=== PATIENT | male | born 1970 | race Caucasian/White ===

== ENCOUNTER → 2020-09-08 08:07 | Outpatient (BNVA) | payer MEDICARE, SELFPAY | PROVIDERS: Family Provider Internal Medicine; PCP Internal Medicine; Visit Provider Surgery | DX: Z20.822 Contact with and (suspected) exposure to COVID-19 (principal); R19.4 Change in bowel habit | CPT/HCPCS: 87635 ==

== ENCOUNTER 2020-09-12 08:21 | Day surgery (SDC) | payer MEDICARE, SELFPAY ==
[2020-09-08 14:50] VITALS: BMI 43.7
[2020-09-12 09:12] VITALS: BP 174/92; PULSE 103; RESP 18; TEMP 36.1; O2SAT 96
[2020-09-12 09:12] LABS: Glucose Point of Care 276 mg/dL (70-110)
[2020-09-12] MEDS: sodium chloride 0.9% 1,000 ML 30 ML IV (09:16)
--- NOTE | 2020-09-12 09:31 | ANES.PREANE2 ---
Pre-Anesthetic Assessment Pre-Anesthetic Assessment: Height/Weight: Height 1.91 m Weight 158.757 kg Temp Pulse Resp BP Pulse Ox 97.0 F L 103 H 18 174/92 96 09/12/20 09:12 09/12/20 09:12 09/12/20 09:12 09/12/20 09:12 09/12/20 09:12 Preop Diagnosis: diagnostic Proposed Procedure: Operation Date: 09/12/20 09:30 Proposed Procedures p Colonoscopy 56381 r19.4(Not Applicable) - Rambo Villalta MD Was Beta Devante taken within 24 hours: N/A Last intake: Intake Last Liquid Date 09/11/20 Last Liquid Time 07:45 Last Solid Date 09/10/20 Last Solid Time 20:30 Social: Social History: No alcohol and No tobacco Exam: Pre-Anes Outpt Exam: alert, oriented x 3, clear to auscultation bilaterally and regular rate & rhythm Airway: Submandibular: WNL Cervical ROM: WNL MP: 2 Dentition: Full CV/HEM: CV/HEM: HTN Metabolic: Metabolic: DM (poorly controlled) and Morbid obesity Anesthetic Plan: ASA status: 3 Anesthesia: MAC Risk of > 500 ml blood loss (7ml/kg in children): No Meds/Allergies Current Medications: Current Medications Generic Name Dose Route Start Last Admin Trade Name Freq PRN Reason Stop Dose Admin Sodium Chloride 1,000 mls @ 30 ml s/hr 09/12/20 08:45 09/12/20 09:16 Sodium Chloride 0.9% IV 09/13/20 08:44 30 mls/hr .Q24H SALENA Administration PFSH Anesthesia PFSH: Medical History (Updated 08/30/20 @ 13:55 by Rambo Villalta MD) Diabetes History of colon polyps Hyperlipidemia Hypertension Surgical History (Updated 08/29/20 @ 15:34 by Rambo Villalta MD) H/O esophagogastroduodenoscopy Status post colonoscopy Family History (Updated 08/29/20 @ 14:53 by Nissa Vickers, RN) Denies family history of Anesthesia complication Bleeding disorder Social History (Updated 08/29/20 @ 15:09 by Nissa Vickers RN) Smoking and tobacco status: never smoked Data Anesthesia Other Labs: Laboratory Results - last 48 hr 09/12/20 09:08 POC Glucose 276 H Cardiac Studies: No Data to Display
--- NOTE | 2020-09-12 10:27 | W.PM.OPSUD ---
Surgery/Procedure H&P Update DATE OF PROCEDURE: September 12, 2020 DATE H&P PERFORMED: 08/29/20 H&P UPDATE INFORMATION: I have reviewed H&P completed within last 30 days, I have examined patient prior to procedure and No changes to prior documentation PREOP DIAGNOSIS: diagnostic PLANNED PROCEDURE: Operation Date: 09/12/20 09:30 Proposed Procedures p Colonoscopy 98967 r19.4(Not Applicable) - Rambo Villalta MD
[2020-09-12 11:07] VITALS: BP 106/68; PULSE 87; RESP 18; TEMP 36.4; O2SAT 93
[2020-09-12 11:23] VITALS: BP 148/71; PULSE 82; RESP 18; O2SAT 95
--- NOTE | 2020-09-12 16:13 | ANE.PACU2 ---
Inpatient post-anesthesia follow up: Airway intact: Yes Vital signs: Temperature 97.5 F Pulse Rate 82 Respiratory Rate 18 Blood Pressure 148/71 Pulse Oximetry 95 Oxygen Delivery Me thod Room Air Oxygen Flow Rate Fraction of Inspir ed Oxygen Hydration adequate: Yes Nausea and vomiting: No Pain level: 1 Mental status: Baseline
== END 2020-09-12 11:35 | disposition home or self-care (01) ==
PROVIDERS: PCP Internal Medicine; Visit Provider Surgery
PROC: 0DJD8ZZ Inspection of Lower Intestinal Tract, Via Natural or Artificial Opening Endoscopic (ICD-10-PCS; CPT 45378; principal; 2020-09-12 09:30)
DX: K57.30 Diverticulosis of large intestine without perforation or abscess without bleeding (principal); D12.8 Benign neoplasm of rectum; D12.5 Benign neoplasm of sigmoid colon; Z86.010 Personal history of colon polyps; Z79.82 Long term (current) use of aspirin; E11.9 Type 2 diabetes mellitus without complications; Z79.4 Long term (current) use of insulin; E78.5 Hyperlipidemia, unspecified; I10 Essential (primary) hypertension
CPT/HCPCS: 12345; 36416; 45380; 82962; 88305; J2704; J7030

== ENCOUNTER → 2020-09-28 08:16 | Outpatient (BNVA) | payer MEDICARE, SELFPAY | PROVIDERS: PCP Internal Medicine; Visit Provider Surgery | DX: K62.89 Other specified diseases of anus and rectum (principal) | CPT/HCPCS: 87635 ==

== ENCOUNTER 2020-10-02 05:45 | Day surgery (SDC) | payer MEDICARE, SELFPAY ==
[2020-09-29 08:52] VITALS: BMI 43.7
[2020-10-02] VITALS (11 sets, daily range): BP systolic 66–162; BP diastolic 42–124; PULSE 85–105; RESP 12–19; TEMP 36.2–37.1; O2SAT 90–96
[2020-10-02] MEDS: sodium chloride 0.9% 1,000 ML 30 ML IV (06:22)
[2020-10-02 06:26] LABS: Glucose Point of Care 367 mg/dL (70-110)
--- NOTE | 2020-10-02 06:28 | ANES.PREANE2 ---
Pre-Anesthetic Assessment Pre-Anesthetic Assessment: Height/Weight: Height 1.91 m Weight 158.757 kg Temp Pulse Resp BP Pulse Ox 98.7 F 105 H 18 162/124 96 10/02/20 06:07 10/02/20 06:07 10/02/20 06:07 10/02/20 06:07 10/02/20 06:07 Preop Diagnosis: perianal cyst Proposed Procedure: Operation Date: 10/02/20 07:30 Proposed Procedures p Excision of perianal cyst 11209 [id number] K62.89(Not Applicable) - Rambo Villalta MD s poss Fistulotomy Anal(Not Applicable) - Rambo Villalta MD Familial anesthetic complications: None Was Beta Devante taken within 24 hours: N/A Last intake: Intake Last Liquid Date 10/01/20 Last Liquid Time 21:00 Last Solid Date 10/01/20 Last Solid Time 21:00 Social: Social History: No alcohol and No tobacco Exam: Pre-Anes Outpt Exam: alert, oriented x 3, clear to auscultation bilaterally and regular rate & rhythm Airway: Cervical ROM: WNL MP: 3 Dentition: False CV/HEM: CV/HEM: HTN Comments: ? TX seen on EKG - underwent evaluation in [place] in 2001, negative work up GI: GI: GERD Metabolic: Metabolic: DM and Morbid obesity Musc/skel: Comments: Mysofascial pain syndrom Neuropsych: Neuropsych: Neuropathy (Patient's L arm and L ulnar distribution will go numb, sometimes for days, normal for him, worked up at [facility] already) Anesthetic Plan: ASA status: 3 Anesthesia: General Risk of > 500 ml blood loss (7ml/kg in children): No Meds/Allergies Current Medications: Current Medications Generic Name Dose Route Start Last Admin Trade Name Freq PRN Reason Stop Dose Admin Sodium Chloride 1,000 mls @ 30 ml s/hr 10/02/20 06:00 10/02/20 06:22 Sodium Chloride 0.9% IV 10/03/20 05:59 30 mls/hr .Q24H SALENA Administration PFSH Anesthesia PFSH: Medical History (Updated 08/30/20 @ 13:55 by Rambo Villalta MD) Diabetes History of colon polyps Hyperlipidemia Hypertension Surgical History (Updated 09/12/20 @ 11:03 by Rambo Villalta MD) H/O esophagogastroduodenoscopy Status post colonoscopy (09/12/20) Family History (Updated 08/29/20 @ 14:53 by Nissa Vickers RN) Denies family history of Anesthesia complication Bleeding disorder Social History (Updated 08/29/20 @ 15:09 by Nissa Vickers RN) Smoking and tobacco status: never smoked Data Anesthesia Other Labs: Laboratory Results - last 48 hr 10/02/20 06:23 POC Glucose 367 H Cardiac Studies: No Data to Display
[2020-10-02] MEDS: insulin regular-human 100 units/1 mL 10 UNIT IVP (06:38)
[2020-10-02] MEDS: midazolam 1 mg/mL INJ 2 mL 2 MG IVP (06:39)
--- NOTE | 2020-10-02 07:01 | W.PM.OPSUD ---
Surgery/Procedure H&P Update DATE OF PROCEDURE: October 02, 2020 DATE H&P PERFORMED: 09/25/20 H&P UPDATE INFORMATION: I have reviewed H&P completed within last 30 days, I have examined patient prior to procedure and No changes to prior documentation PREOP DIAGNOSIS: perianal cyst PLANNED PROCEDURE: Operation Date: 10/02/20 07:30 Proposed Procedures p Excision of perianal cyst 36630 60024 K62.89(Not Applicable) - Rambo Villalta MD s poss Fistulotomy Anal(Not Applicable) - Rambo Villalta MD
[2020-10-02] MEDS: levofloxacin-dextrose 5 % 750 MG/150 ML PREMIX 100 MG IV (08:04)
--- NOTE | 2020-10-02 09:00 | PM.OP ---
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 Preop antibiotics administered was administered and the perianal area was prepped and draped in a sterile manner. Rectal exam under anesthesia revealed opening inferior to the dentate line. There was a palpable cyst noted about 3 cm from this opening on the posterior aspect. Lacrimal probe introduced through the cyst extended up to the fistulous opening just inferior to the dentate line. The fistula was noted to be superficial to the anal sphincter. Using electrocautery a fistulotomy was performed and the wall of the fistula was sutured to the skin edge using running 3-0 chromic suture. 10 cc of saline mixed with 10 cc of Exparel mixed with 0.5% Marcaine was infiltrated for a perianal block. Quarter inch ribbon gauze was placed and the patient was extubated and transferred to recovery room in stable condition.
[2020-10-02 09:44] LABS: Glucose Point of Care 233 mg/dL (70-110)
--- NOTE | 2020-10-02 09:45 | SUR.PHASEII ---
0940 Pt c/o feeling solar installer pv his head and neck. BP stable at 136/74. Blood sugar taken and noted at 233. Pt c/o pain at 7 to surgical area. Pt assisted to sitting position and ice applied to neck. Pt states he is beginning to feel better.
[2020-10-02] MEDS: HYDROcodone-acetaminophen 5-325 mg Tablet 1 TAB PO (09:50)
--- NOTE | 2020-10-02 10:13 | SUR.PHASEII ---
1005 Discharge teaching performed. Pt instructed on how to use sitz bath 3x daily and apply dressing to anus. No questions voiced.
--- NOTE | 2020-10-02 18:03 | ANE.PACU2 ---
Inpatient post-anesthesia follow up: Airway intact: Yes Vital signs: Temperature 97.8 F Pulse Rate 89 Respiratory Rate 16 Blood Pressure 136/74 Pulse Oximetry 94 Oxygen Delivery Me thod Room Air Oxygen Flow Rate 8 Fraction of Inspir ed Oxygen Hydration adequate: Yes Nausea and vomiting: No Pain level: 2 Mental status: Baseline
== END 2020-10-02 10:15 | disposition home or self-care (01) ==
PROVIDERS: PCP Internal Medicine; Visit Provider Surgery
PROC: (CPT 46270; principal; 2020-10-02 07:30)
DX: K62.89 Other specified diseases of anus and rectum (principal); I10 Essential (primary) hypertension; I25.2 Old myocardial infarction; K21.9 Gastro-esophageal reflux disease without esophagitis; E66.01 Morbid (severe) obesity due to excess calories; Z68.41 Body mass index [BMI] 40.0-44.9, adult; E11.40 Type 2 diabetes mellitus with diabetic neuropathy, unspecified; Z86.010 Personal history of colon polyps; E78.5 Hyperlipidemia, unspecified; Z79.82 Long term (current) use of aspirin; Z79.4 Long term (current) use of insulin
CPT/HCPCS: 46270; 36416; 82962; 96374; 96375; C9290; J0131; J0330; J1100; J1815; J1956; J2250; J2370; J2405; J2704; J3010; J3490; J7030

== ENCOUNTER → 2020-11-24 10:42 | Outpatient (BNVA) | payer MEDICARE, SELFPAY | PROVIDERS: PCP Internal Medicine; Visit Provider Anesthesiology | DX: G89.29 Other chronic pain (principal); M54.9 Dorsalgia, unspecified; M25.552 Pain in left hip; M25.572 Pain in left ankle and joints of left foot; M54.2 Cervicalgia; M25.511 Pain in right shoulder; Z79.891 Long term (current) use of opiate analgesic | CPT/HCPCS: 99213 ==

== ENCOUNTER 2021-03-25 07:30 | Emergency (ER) | payer MEDICARE, SELFPAY ==
[2021-03-25] VITALS (8 sets, daily range): BP systolic 134–213; BP diastolic 69–101; PULSE 75–99; RESP 16–18; TEMP 36.4; O2SAT 90–97; BMI 45.0
--- NOTE | 2021-03-25 07:47 | W.ED.HA ---
HPI - Headache General: Chief Complaint: Headache Stated Complaint: NICOLE Time Seen by Provider: 03/25/21 07:43 History of Present Illness: HPI Narrative: Mr. Goncalves is a 50-year-old gentleman with history of diabetes, hypertension, hyperlipidemia who presents emergency department due to headache. Reports onset of headache was acute at approximately midnight. He describes initially feeling right face pain as if he was going to develop a sinus headache. He attempted home medications without significant relief. His headache has subsequently worsened. He endorses associated photophobia. He has not had vision changes. No change from his baseline chronic neck pain. No other infectious symptoms. Overall the course of symptoms has persisted. The intensity is moderate to severe. He denies similar episodes in the past. No other specific exacerbating relieving factors. Review of Systems General: Reports: 10 or more systems reviewed and unremarkable except in HPI and below Narrative: CONSTITUTIONAL: denies fever, fatigue, weakness EYES - patient endorses photophobia, denies loss of vision EARS - denies ear issues. NOSE - denies congestion or rhinorrhea. THROAT - denies sore throat or difficulty swallowing. CARDIOVASCULAR - denies chest pain and palpitations RESPIRATORY - denies shortness of breath and cough GASTROINTESTINAL - denies abdominal pain, no nausea vomiting, no changes in bowel habits GENITOURINARY - denies dysuria or urinary frequency MUSCULOSKELETAL- denies deformity or pain SKIN - denies rashes or new changed skin lesions NEUROLOGIC - denies focal weakness or sensory changes. Headache is noted in HPI HEMATOLOGIC/LYMPHATIC - denies easy bruising or lymphadenopathy. [facility] ED PFSH: Medical History Chronic low back pain Diabetes History of colon polyps Hyperlipidemia Hypertension Narcotic dependency, continuous Opioid contract exists Surgical History H/O esophagogastroduodenoscopy Status post colonoscopy (09/12/20) Status post surgery (10/02/20) Perianal fistulotomy Family History Denies family history of Anesthesia complication Bleeding disorder Social History Smoking and tobacco status: never smoked Physical Exam Narrative: EXAM NARRATIVE: GENERAL/CONSTITUTIONAL - well-appearing. Discomfort due to headache, patient has a towel over his face to prevent light Eyes - PERRL, initially limited exam due to severe photophobia. ENMT - Atraumatic external nose and ears. Moist mucous membranes. No vesicular lesions or other rash noted on face or auditory canal. No tenderness palpation of the temporal artery. No tenderness with percussion of facial nerve. NECK - supple. trachea midline CARDIOVASCULAR - regular rate and rhythm. Peripheral pulses 2+ and equal RESPIRATORY -clear to auscultation bilaterally. No retractions or accessory muscle use. ABDOMEN/GI - Nontender/Nondistended. No tenderness to percussion or evidence of peritonitis MSK - Extremities without obvious deformity or tenderness to palpation SKIN - Warm, Dry NEURO - alert and appropriately oriented. strength and sensation intact. Moves all extremities equally. PSYCH - Appropriate mood and affect Course ED course: - Patient was seen and evaluated by me at bedside - Patient placed on cardiac monitors, IV access obtained - Initial evaluation notable for uncomfortable appearance due to photophobia and headache -Headache cocktail and IV fluids given. - Labs notable for no significant abnormalities to likely explain patient's symptoms. Patient has a known history of hyperglycemia and reports following up with his primary care regarding this. - Imaging notable for no acute intracranial hemorrhage or mass to explain the patient's headache. - Upon serial reexamination after treatment the patient was improved with near complete resolution of headache. -Eye exam did reveal mild right eye scleral injection and overlying abrasion on fluorescein exam. Intraocular pressures measured 10 on the right and 9 on the left. No evidence of entrapment or abnormal extra ocular movements. - Based on patient history, evaluation, labs, and imaging as interpreted the most likely cause of the patient's condition is headache and corneal abrasion - The results of ED evaluation were discussed with the patient including prescriptions and/or symptomatic cares including appropriate and responsible use, followup plan, and return precautions. The patient verbalized understanding and felt safe for discharge. - Patient discharged in satisfactory condition. Vital Signs: Vital signs: Vital Signs Temperature 97.5 F L 03/25/21 07:46 Pulse Rate 93 03/25/21 10:47 Respiratory Rate 16 03/25/21 10:47 Blood Pressure 162/76 03/25/21 10:47 Pulse Oximetry 95 03/25/21 10:47 MDM - Headache Medical Records: Attestation: I reviewed the patient's medical records. Lab Data: Attestation: I reviewed the patient's lab results. Labs: Lab Results 03/25/21 03/25/21 Range/Units 08:16 08:16 WBC 6.5 (4.0-10.0) 10^3/ uL RBC 5.75 H (4.1-5.3) 10^6/u L Hgb 15.5 (11.7-16.6) g/dL Hct 45.7 (42.0-52.0) % MCV 79.5 L (80-94) fl MCH 27.0 L (28.0-34.0) pg MCHC 33.9 (30.0-36.0) g/dL RDW 12.3 (12.1-15.1) % Plt Count 191 (130-400) 10^3/c mm MPV 10.4 (7.4-10.4) fL Neut % (Auto) 59.1 % Lymph % (Auto) 27.4 % [place] % (Auto) 7.9 % Eos % (Auto) 2.8 % Baso % (Auto) 1.9 % Neut # (Auto) 3.81 (1.8-7.7) 10^3/u L Lymph # (Auto) 1.8 (0.8-4.8) 10^3/u L [place] # (Auto) 0.5 (0.2-0.9) 10^3/u L Eos # (Auto) 0.2 (0.0-0.8) 10^3/u L Baso # (Auto) 0.1 (0.0-0.1) 10^3/u L Nucleated RBC % (a uto) 0 % Nucleated RBCs # 0.0 /100WBC Sodium 130 L (136-145) mmol/L Potassium 4.5 (3.5-5.1) mmol/L Chloride 92 L (98-107) mmol/L Carbon Dioxide 22 (22-29) mmol/L Anion Gap 20.5 H (5-19) BUN 13 (6-20) mg/dL Creatinine 0.7 (0.7-1.2) mg/dL GFR Calculation 120.4 (90-130) mL/min Glucose 356 H (65-115) mg/dL Calculated Osmolal ity 284 L (285-295) mOsm/k g Calcium 9.1 (8.5-10.5) mg/dL Total Bilirubin 0.4 (0.15-1.2) mg/dL AST 15 (0-40) U/L ALT 28 (0-41) U/L Alkaline Phosphata se 113 (40-130) IU/L NT-Pro-B Natriuret Pep 30 (0-125) pg/mL Total Protein 7.6 (6.6-8.7) g/dL Albumin 4.0 (3.5-5.2) g/dL Globulin 3.6 (1.3-4.6) g/dL Discharge Plan Discharge Patient Disposition: Home Clinical Impression: Headache, Abrasion, corneal Condition: Stable Prescriptions: New erythromycin 5 mg/gram (0.5 %) ointment 1 applic ophthalmic (eye) TID 5 Days Qty: 3.5 RF: 0 Compazine 10 mg tablet 10 mg PO Q8H PRN (Reason: migraine headache) Qty: 7 RF: 0 No Action aspirin 81 mg tablet,delayed release (DR/EC) 81 mg PO DAILY RF: 0 insulin lispro [Humalog KwikPen Insulin] 100 unit/mL insulin pen 80 unit SUBCUT TID RF: 0 Trulicity 1.5 mg/0.5 mL pen injector 1.5 mg SUBCUT .weekly RF: 0 Tresiba FlexTouch U-200 200 unit/mL (3 mL) insulin pen 80 unit SUBCUT DAILY RF: 0 lisinopril 40 mg tablet 40 mg PO DAILY RF: 0 hydrochlorothiazide 25 mg tablet 25 mg PO DAILY RF: 0 simvastatin 10 mg tablet 10 mg PO DAILY RF: 0 cyclobenzaprine 10 mg tablet 10 mg PO TID RF: 0 tizanidine 4 mg tablet 4 mg PO TID PRN (Reason: muscle spasticity) 30 Days Qty: 90 RF: 0 oxycodone 10 mg tablet 10 mg PO TID PRN (Reason: pain) 30 Days Qty: 90 RF: 0 esomeprazole magnesium [Nexium] 20 mg Capsule,Delayed Release(Dr/Ec) 20 mg PO DAILY RF: 0 Discharge Orders: Discharge ED (Routine); Ordered 03/25/21 Ordered By: Ty Hutson Referrals: Donna Venegas MD [Primary Care Provider] - Discharge Diet: Usual diet Discharge Activity: Resume usual activity Patient Instructions: Hyperglycemia, Corneal Abrasion (ED), Acute Headache (ED), Opioid Safety Activity Restrictions/Additional Instructions: Thank you for visiting the emergency department. You were seen and evaluated for headache. The exact cause of headaches is somewhat unclear though we did not find any significant abnormality to explain your symptoms. We are pleased that this improved with treatment. You were noted to have an abrasion on your eye which will be treated with eyedrops. Additionally you will be given a prescription for medication that you can use with Benadryl and Tylenol to help with further headaches. This medication can cause sedation, do not combine it with other sedating medications. Please return to the emergency department for any reason that you are concerned about and feel needs emergency department evaluation. Coding Level of Care Code ED Retanned Leather Roller for Jojo Hernandez
--- NOTE | 2021-03-25 07:55 | CTR_ITS ---
PROCEDURE INFORMATION: Exam: CT Head Without Contrast Exam date and time: 03/25/2021 7:55 AM Age: 50 years old Clinical indication: Pain; Headache; Migraine; Aura effect not specified; Additional info: Severe headache, photophobia, no history of migraines TECHNIQUE: Imaging protocol: Computed tomography of the head without contrast. Radiation optimization: All CT scans at this facility use at least one of these dose optimization techniques: automated exposure control; mA and/or kV adjustment per patient size (includes targeted exams where dose is matched to clinical indication); or iterative reconstruction. COMPARISON: No relevant prior studies available. RADIATION DOSE METRICS: Total DLP (mGy-cm): 935.39 FINDINGS: Brain: Normal. No hemorrhage. Unremarkable white matter. No mass effect. Ventricles: No hydrocephalus or evidence of increased intracranial pressure. Paranasal sinuses: Visualized sinuses are unremarkable. No fluid levels. Mastoid air cells: Visualized mastoid air cells are well aerated. Vasculature: Atherosclerotic calcifications are present involving the carotid artery siphons bilaterally and the left vertebral artery. Bones/joints: No acute abnormality. No acute fracture. Soft tissues: Unremarkable. CT/CT head wo con* [id number] IMPRESSION: No acute intracranial abnormality. Radiation Dose CTDIVOL = (mGy): DLP = 935.39 (mGy-cm)
[2021-03-25] MEDS: ketorolac 30 mg/mL INJ 15 MG IVP (08:23)
[2021-03-25] MEDS: lactated ringers 1,000 ML 999 ML IV (08:23)
[2021-03-25 08:24] LABS: Basophils # 0.1 10^3/uL (0.0-0.1); Basophils % 1.9 %; Eosinophils # 0.2 10^3/uL (0.0-0.8); Eosinophils % 2.8 %; Hematocrit 45.7 % (42.0-52.0); Hemoglobin 15.5 g/dL (11.7-16.6); Lymphocytes # 1.8 10^3/uL (0.8-4.8); Lymphocytes % 27.4 %; Mean Corpuscular HGB Conc 33.9 g/dL (30.0-36.0); Mean Corpuscular Volume 79.5 fl (80-94); Mean Platelet Volume 10.4 fL (7.4-10.4); Monocytes # 0.5 10^3/uL (0.2-0.9); Monocytes % 7.9 %; Neutrophils # 3.81 10^3/uL (1.8-7.7); Neutrophils % 59.1 %; Nucleated Red Blood Cells % 0 %; Platelet Count 191 10^3/cmm (130-400); Red Blood Count 5.75 10^6/uL (4.1-5.3); Red Cell Distribution Width 12.3 % (12.1-15.1); White Blood Count 6.5 10^3/uL (4.0-10.0)
[2021-03-25] MEDS: diphenhydrAMINE 50 mg/mL SDV 1mL 25 MG IVP (08:24)
[2021-03-25] MEDS: metoclopramide 5 mg/mL SDV 2 mL 10 MG IVP (08:24)
[2021-03-25 09:00] LABS: Alanine Aminotransferase 28 U/L (0-41); Alkaline Phosphatase 113 IU/L (40-130); Aspartate Amino Transferase 15 U/L (0-40); Blood Urea Nitrogen 13 mg/dL (6-20); Calcium 9.1 mg/dL (8.5-10.5); Carbon Dioxide 22 mmol/L (22-29); Chloride 92 mmol/L (98-107); Globulin 3.6 g/dL (1.3-4.6); Glomerular Filtration Rate 120.4 mL/min (90-130); Glucose 356 mg/dL (65-115); NT Pro B Type Natriuretic Pept 30 pg/mL (0-125); Osmolality Calculated 284 mOsm/kg (285-295); Sodium 130 mmol/L (136-145); Total Bilirubin 0.4 mg/dL (0.15-1.2); Total Protein 7.6 g/dL (6.6-8.7)
[2021-03-25 09:09] LABS: Anion Gap 20.5 (5-19); Potassium 4.5 mmol/L (3.5-5.1)
== END 2021-03-25 10:47 | disposition home or self-care (01) ==
PROVIDERS: Emergency Provider Emergency Medicine; PCP Internal Medicine
DX: S05.01XA Injury of conjunctiva and corneal abrasion without foreign body, right eye, initial encounter (principal); R51.9 Headache, unspecified; E11.9 Type 2 diabetes mellitus without complications; I10 Essential (primary) hypertension; E78.5 Hyperlipidemia, unspecified; Z79.4 Long term (current) use of insulin; Z79.899 Other long term (current) drug therapy; X58.XXXA Exposure to other specified factors, initial encounter
CPT/HCPCS: 70450; 80053; 83880; 85025; 96361; 96374; 96375; 99284; J1200; J1885; J2765

== ENCOUNTER → 2021-08-13 11:52 | Outpatient (BNVA) | payer MEDICARE, SELFPAY | PROVIDERS: PCP Internal Medicine; Visit Provider Nurse Practitioner Family | DX: Z20.822 Contact with and (suspected) exposure to COVID-19 (principal) | CPT/HCPCS: 87635 ==

== ENCOUNTER 2021-08-16 14:12 | Outpatient (CLI) | payer MEDICARE, SELFPAY ==
[2021-08-16 14:40] VITALS: BP 136/93; PULSE 110; RESP 20; TEMP 36.6; O2SAT 96; BMI 43.7
[2021-08-16 15:26] VITALS: BP 119/76; PULSE 97; RESP 18; TEMP 36.6; O2SAT 95
[2021-08-16 16:14] VITALS: BP 122/77; PULSE 98; RESP 16; TEMP 36.2; O2SAT 96
== END 2021-08-16 14:13 | disposition home or self-care (01) ==
PROVIDERS: PCP Internal Medicine; Visit Provider Internal Medicine
DX: U07.1 COVID-19 (principal)
CPT/HCPCS: 96365

== ENCOUNTER 2022-04-03 11:53 | Outpatient (CLI) | payer MEDICARE, SELFPAY ==
--- NOTE | 2022-04-03 12:08 | XR_ITS ---
WS: [id number] Exam: XR shoulder LT min 2V* [id number] Date/Time of Exam: 04/03/2022 12:08 PM Reason For Exam: fall Comparison 06/29/2011. No fracture or dislocation. Deformity of the glenoid which may be secondary to previous trauma or leonel rubin. Soft tissue calcification along the humeral head that might indicate calcific bursitis or tendi nitis. XR/XR shoulder LT min 2V* [id number] IMPRESSION: 1. No fracture or dislocation. 2. Deformity of the glenoid etiology uncertain. Appearance unchanged. 3. Possible calcific tendinitis and/or bursitis.
--- NOTE | 2022-04-03 12:08 | XR_ITS ---
WS: [id number] Exam: XR chest 2V* [id number] Date/Time of Exam: 04/03/2022 12:08 PM Reason For Exam: fall Comparison 12/26/2016. The lungs are clear and fully expanded. Normal cardiomediastinal silhouette. Bony structures are inta ct. Scattered calcified granulomas. Postoperative changes in the lower cervical spine. XR/XR chest 2V* [id number] IMPRESSION: 1. No acute cardiopulmonary finding. No change.
== END 2022-04-03 11:54 | disposition home or self-care (01) ==
LOC: RAD 11:56
PROVIDERS: PCP Internal Medicine; Visit Provider Registered Nurse Neonatal Intensive Care
DX: M25.512 Pain in left shoulder (principal); W19.XXXA Unspecified fall, initial encounter
CPT/HCPCS: 71046; 73030

== ENCOUNTER 2022-04-19 19:59 | Emergency (ER) | payer MEDICARE, SELFPAY ==
[2022-04-19 20:00] VITALS: BP 197/97; PULSE 92; RESP 18; TEMP 36.2; O2SAT 96
--- NOTE | 2022-04-19 22:36 | ED_ITS ---
HPI - Extremity Problem General: Chief complaint: Extremity Injury, Upper Stated complaint: left shoulder pain and numbness Time Seen by Provider: 04/19/22 22:30 History of Present Illness: 51-year-old male patient comes in today with complaints of left shoulder pain and discomfort with numbness numbness going down the left arm. Patient has a history of surgeries to his neck and to his left shoulder. Patient appears nontoxic. Patient appears in mild to moderate pain. Patient has increased pain with movement of the shoulder. Patient reports pain been since Friday evening. Review of Systems Musc: Reports: joint pain (Right shoulder) [facility] ED PFSH: Medical History Chronic low back pain Diabetes History of colon polyps Hyperlipidemia Hypertension Narcotic dependency, continuous Opioid contract exists Surgical History H/O esophagogastroduodenoscopy Status post colonoscopy (09/12/20) Status post surgery (10/02/20) Perianal fistulotomy Family History Denies family history of Anesthesia complication Bleeding disorder Social History (Updated 08/13/21 @ 08:58 by Jazz Mendoza NP) Smoking and tobacco status: former smoker Physical Exam Const: COMMON NORMALS: alert HENMT: COMMON NORMALS: atraumatic HEAD & SCALP: atraumatic Neck/C-Spine: COMMON NORMALS: full ROM Resp: COMMON NORMALS: normal respiratory effort and clear to auscultation bilaterally AUSCULTATION: clear to auscultation bilaterally Cardio: COMMON NORMALS: regular rate RATE: regular rate GI: COMMON NORMALS: Normal to inspection, nondistended, normoactive bowel sounds present Extremity: NARRATIVE EXTREMITY EXAM: No swelling or redness is noted to the left shoulder and arm. LEFT UPPER EXTREMITY: Yes shoulder joint (Normal range of motion, posterior shoulder tenderness) Left shoulder joint: Yes inspection, Yes palpation and Yes ROM Neuro: SENSORIUM/ORIENTATION: Yes alert Course Vital Signs: Vital signs: Vital Signs Temperature 97.1 F L 04/19/22 20:00 Pulse Rate 92 04/19/22 20:00 Respiratory Rate 18 04/19/22 20:00 Blood Pressure 197/97 04/19/22 20:00 Pulse Oximetry 96 04/19/22 20:00 Oxygen Delivery Me thod 04/19/22 20:00 MDM - Extremity (Nontraumatic) Medical Decision Making 51-year-old male patient comes in today with pain to the left shoulder increased with movement and numbness radiating down it. Patient does have a history of shoulder surgery and neck surgery. On exam patient has normal passive range of motion with tenderness on palpation of the shoulder. Distal pulses and sensation are intact. No obvious swelling or redness is noted to the arm. Differential diagnosis includes tendinitis, cervical radiculopathy, osteoarthritis. Reviewed x-rays from the end of March noted some tendinitis in the shoulder. Suspect this may be patient's cause of his increased pain. Patient appears well. Patient appears in no acute distress. No signs of blood clot was noted to the arm. Recommended follow-up with intensive care medicine specialist. Patient reported understanding. Discharge Plan Discharge Patient Disposition: Home Clinical Impression: Pain in left shoulder Qualifiers: Chronicity: acute Qualified Code(s): M25.512 - Pain in left shoulder Condition: Stable Prescriptions: No Action aspirin 81 mg tablet,delayed release (DR/EC) 81 mg PO DAILY insulin lispro [Humalog KwikPen Insulin] 100 unit/mL insulin pen 80 unit SUBCUT TID Trulicity 1.5 mg/0.5 mL pen injector 1.5 mg SUBCUT .weekly Tresiba FlexTouch U-200 200 unit/mL (3 mL) insulin pen 80 unit SUBCUT DAILY lisinopril 40 mg tablet 40 mg PO DAILY hydrochlorothiazide 25 mg tablet 25 mg PO DAILY simvastatin 10 mg tablet 10 mg PO DAILY cyclobenzaprine 10 mg tablet 10 mg PO TID oxycodone 10 mg tablet 10 mg PO TID PRN (Reason: pain) 30 Days Qty: 90 0RF Rx Instructions: fill on or after 11/24/20 esomeprazole magnesium [Nexium] 20 mg Capsule,Delayed Release(Dr/Ec) 20 mg PO DAILY Discharge Orders: Discharge ED (Routine); Ordered 04/19/22 Ordered By: Kvng Alvarado Referrals: Donna Venegas MD [Primary Care Provider] - Discharge Diet: Usual diet Discharge Activity: Increase activity as tolerated Patient Instructions: Pain Management Activity Restrictions/Additional Instructions: Home and rest. Activity as tolerated. Follow-up with primary care as needed. Return to ER for shortness of breath, increasing chest discomfort, swelling or redness to the left arm, or new concerns. Coding Level of Care Code ED Rough Planer Tender for Jojo Hernandez
[2022-04-19 23:42] VITALS: BP 159/81; PULSE 90; RESP 18; TEMP 36.2; O2SAT 97
== END 2022-04-19 23:45 | disposition home or self-care (01) ==
PROVIDERS: Emergency Provider Nurse Practitioner Family; PCP Internal Medicine
DX: M25.512 Pain in left shoulder (principal)
CPT/HCPCS: 99281

== ENCOUNTER 2023-09-20 08:16 | Emergency (ER) | payer MEDICARE, SELFPAY ==
[2023-09-20 08:19] VITALS: BP 184/104; PULSE 93; RESP 16; TEMP 36.4; O2SAT 98; BMI 42.5
--- NOTE | 2023-09-20 08:28 | W.ED.EYEPROB ---
HPI - Eye Problem General: Chief complaint: Eye Problems Stated complaint: right eye pain Time Seen by Provider: 09/20/23 08:23 History of Present Illness: 53-year-old male who presents to the emergency room with complaint of right eyebrow pain. He says he had had shingles before and this feels exactly the same. He would have gone to see his eye doctor today but he could not. He says he has very severe photophobia at the time. No pain with movement of the eye. No vision changes. He request to be started on the medications he was started on before. This seems appropriate and he will see his eye doctor on Friday. No altered mental status. No focal motor deficits. No fevers. No chest pain. No shortness of breath. Review of Systems Narrative: Constitutional symptoms: Negative except as documented in HPI. Skin symptoms: Negative except as documented in HPI. Eye symptoms: Negative except as documented in HPI. ENMT symptoms: Negative except as documented in HPI. Respiratory symptoms: Negative except as documented in HPI. Cardiovascular symptoms: Negative except as documented in HPI. Gastrointestinal symptoms: Negative except as documented in HPI. Genitourinary symptoms: Negative except as documented in HPI. Musculoskeletal symptoms: Negative except as documented in HPI. Neurologic symptoms: Negative except as documented in HPI. Psychiatric symptoms: Negative except as documented in HPI. Endocrine symptoms: Negative except as documented in HPI. [facility] ED PFSH: Medical History Chronic low back pain Diabetes History of colon polyps Hyperlipidemia Hypertension Narcotic dependency, continuous Opioid contract exists Surgical History H/O esophagogastroduodenoscopy Status post colonoscopy (09/12/20) Status post surgery (10/02/20) Perianal fistulotomy Family History Denies family history of Anesthesia complication Bleeding disorder Social History (Updated 08/13/21 @ 08:58 by Jazz Mendoza NP) Smoking and tobacco/nicotine status: former use of tobacco/nicotine Physical Exam Narrative: EXAM NARRATIVE: General: Alert, no acute distress. Skin: warm and dry Head: Normocephalic Neck: Trachea midline Eye: Extraocular movements are intact. Vision is grossly normal. Patient has severe photophobia and will not allow much exam at this time. Ears, nose, mouth and throat: Oral mucosa moist Respiratory: Respirations are non-labored Musculoskeletal: Normal ROM Neurological: Alert and oriented to person, place, time, and situation, No focal neurological deficit observed. Psychiatric: Cooperative, appropriate mood & affect. MDM - Eye Problem Medical Decision Making Other than some erythema I see no rash or abnormalities at this time. No gross abnormalities in vision. Diagnosis was made previously by an emergency communications officer. I will start him on antivirals and steroids and he will follow-up with his eye doctor in the next few days. No radiology studies performed this visit Other Data - Discharged home - Discussed plan with patient. Answered any questions. - Evaluation and treatment of this problem were appropriate in the emergency setting. Discharge Plan Discharge Patient Disposition: Home Clinical Impression: Shingles Condition: Stable Prescriptions: New valacyclovir 1 gram tablet 1,000 mg PO Q12H 10 Days Qty: 20 0RF prednisone 20 mg tablet 60 mg PO DAILY Qty: 20 0RF Rx Instructions: 3 tabs (60 mg) x 3 days. 2 tabs (40 mg) x 3 days. 1 tab (20 mg) x 3 days. 1/2 tab (10 mg) x 4 days No Action aspirin 81 mg tablet,delayed release (DR/EC) 81 mg PO DAILY insulin lispro [Humalog KwikPen Insulin] 100 unit/mL insulin pen 80 unit SUBCUT TID Trulicity 1.5 mg/0.5 mL pen injector 1.5 mg SUBCUT .weekly Tresiba FlexTouch U-200 200 unit/mL (3 mL) insulin pen 80 unit SUBCUT DAILY lisinopril 40 mg tablet 40 mg PO DAILY hydrochlorothiazide 25 mg tablet 25 mg PO DAILY simvastatin 10 mg tablet 10 mg PO DAILY cyclobenzaprine 10 mg tablet 10 mg PO TID oxycodone 10 mg tablet 10 mg PO TID PRN (Reason: pain) 30 Days Qty: 90 0RF Rx Instructions: fill on or after 11/24/20 esomeprazole magnesium [Nexium] 20 mg Capsule,Delayed Release(Dr/Ec) 20 mg PO DAILY Discharge Orders: Discharge ED (Routine); Ordered 09/20/23 Ordered By: Cara Lantigua Referrals: Donna Venegas MD [Primary Care Provider] - (Please keep your follow-up with your emergency communications officer on Friday. You have been screened and evaluated and felt safe for discharge. Health conditions do change or evolve sometimes and as such it is important that you follow up with your Primary Doctor to be re checked, 3-5 days is a general good time frame for follow up. You are always welcome to return to the ED for re assessment if your symptoms are worsening or you have new concerns) Discharge Diet: Usual diet Discharge Activity: Increase activity as tolerated Patient Instructions: Opioid Safety, Pain Management, Shingles (ED) Coding Level of Care Code ED Resident In Diagnostic Radiology for Jojo Hernandez
[2023-09-20 08:38] VITALS: BP 161/92; O2SAT 97
[2023-09-20] MEDS: dexamethasone 10 mg/mL INJ IM (08:54)
[2023-09-20 08:59] VITALS: BP 161/92; O2SAT 97
== END 2023-09-20 09:01 | disposition home or self-care (01) ==
PROVIDERS: Emergency Provider Emergency Medicine; PCP Internal Medicine
DX: B02.9 Zoster without complications (principal); Z79.82 Long term (current) use of aspirin; Z79.85 Long-term (current) use of injectable non-insulin antidiabetic drugs; Z79.4 Long term (current) use of insulin; E11.9 Type 2 diabetes mellitus without complications; E78.5 Hyperlipidemia, unspecified; I10 Essential (primary) hypertension; Z87.891 Personal history of nicotine dependence
CPT/HCPCS: 96372; 99284; J1100

== ENCOUNTER 2024-01-19 01:52 | Emergency (ER) | payer MEDICARE, SELFPAY ==
[2024-01-19 01:55] VITALS: BP 163/88; PULSE 90; RESP 18; TEMP 36.3; O2SAT 98; BMI 42.5
[2024-01-19 02:00] VITALS: BP 169/88; PULSE 92; RESP 16; O2SAT 97
[2024-01-19] MEDS: valACYclovir 1,000 mg Tablet 1000 MG PO (02:44)
[2024-01-19] MEDS: dexamethasone 10 mg/mL INJ IM (02:44)
[2024-01-19 02:55] VITALS: BP 177/103; PULSE 91; RESP 18; O2SAT 96
--- NOTE | 2024-01-19 03:58 | W.ED.SKABFB ---
HPI - Skin/Abscess/Foreign Bdy General: Chief complaint: Skin/Abscess/Foreign Body Stated complaint: believes shingles in right eye Time Seen by Provider: 01/19/24 02:00 History of Present Illness: 53-year-old male with a history of shingles 2 times before. He complains of pain in and around the right eye. There is redness. He is photophobic, but his vision is intact. He had similar symptoms with zoster ophthalmicus, and believes this is the cause. He had been treated with steroids and antivirals prior with good results. It is the weekend, so we was not able to get into see his eye doctor. [facility] ED PFSH: Medical History Chronic low back pain Diabetes History of colon polyps Hyperlipidemia Hypertension Narcotic dependency, continuous Opioid contract exists Surgical History H/O esophagogastroduodenoscopy Status post colonoscopy (09/12/20) Status post surgery (10/02/20) Perianal fistulotomy Family History Denies family history of Anesthesia complication Bleeding disorder Social History (Updated 08/13/21 @ 08:58 by Jazz Mendoza NP) Smoking and tobacco/nicotine status: former use of tobacco/nicotine Physical Exam Const: COMMON NORMALS: no acute distress GENERAL APPEARANCE: cooperative; not ill appearing and not frail appearing HENMT: COMMON NORMALS: normocephalic, atraumatic and Normal external nose present HEAD & SCALP: normocephalic and atraumatic FACE & SINUS: normal facial exam and face symmetric NOSE: Normal external nose present Eye: COMMON NORMALS: Equal, round and reactive pupils present and EOMs intact bilaterally VISUAL FOSTER: No peripheral vision loss and No central vision loss PERIORBITAL: periorbital findings abnormal positive right periorbital tenderness and other (Mild vesicular rash present) CONJUNCTIVA: Yes conjunctival abnormal positive right conjunctival injection diffuse; without discharge PUPIL: Yes Equal, round and reactive pupils present Neck/C-Spine: GENERAL: Yes trachea midline Chest: CHEST: Yes Symmetrical chest wall rise Resp: COMMON NORMALS: normal respiratory effort, No retractions, No use of accessory muscles and clear to auscultation bilaterally AUSCULTATION: clear to auscultation bilaterally Cardio: COMMON NORMALS: regular rate and regular rhythm RATE: regular rate RHYTHM: regular rhythm GI: COMMON NORMALS: Normal to inspection, nondistended, normoactive bowel sounds present Neuro: HERIBERTO COMA SCALE: document GCS findings Holcomb coma scale eye opening: Spontaneous Holcomb coma scale verbal response: Orientated Holcomb coma scale motor response: Obey commands Holcomb coma scale total score: 15 SENSORY EXAM: Yes extremities (intact) Psych: COMMON NORMALS: speech normal SPEECH: Yes normal speech Skin: NARRATIVE SKIN EXAM: See above Course Vital Signs: Vital signs: Vital Signs Temperature 97.4 F L 01/19/24 01:55 Pulse Rate 91 01/19/24 02:55 Respiratory Rate 18 01/19/24 02:55 Blood Pressure 177/103 01/19/24 02:55 Pulse Oximetry 96 01/19/24 02:55 Oxygen Delivery Me thod Room Air 01/19/24 02:00 MDM - Skin/Abscess/Foreign Bdy Medicial Decision Making Patient does appear to have zoster rash in the periorbital region. His eye is red. Testing not performed due to patient discomfort. Vision is intact. He will be prescribed steroids, and antivirals. He will follow-up with ophthalmology later today. To return for worsening symptoms despite treatment. No radiology studies performed this visit Discharge Plan Discharge Patient Disposition: Home Clinical Impression: Zoster ophthalmicus Condition: Stable Prescriptions: New Valtrex 1 gram tablet 1,000 mg PO TID 7 Days Qty: 21 0RF Continued prednisone 20 mg tablet 60 mg PO DAILY Qty: 20 0RF Rx Instructions: 3 tabs (60 mg) x 3 days. 2 tabs (40 mg) x 3 days. 1 tab (20 mg) x 3 days. 1/2 tab (10 mg) x 4 days No Action aspirin 81 mg tablet,delayed release (DR/EC) 81 mg PO DAILY insulin lispro [Humalog KwikPen Insulin] 100 unit/mL insulin pen 80 unit SUBCUT TID Trulicity 1.5 mg/0.5 mL pen injector 1.5 mg SUBCUT .weekly Tresiba FlexTouch U-200 200 unit/mL (3 mL) insulin pen 80 unit SUBCUT DAILY lisinopril 40 mg tablet 40 mg PO DAILY hydrochlorothiazide 25 mg tablet 25 mg PO DAILY simvastatin 10 mg tablet 10 mg PO DAILY cyclobenzaprine 10 mg tablet 10 mg PO TID oxycodone 10 mg tablet 10 mg PO TID PRN (Reason: pain) 30 Days Qty: 90 0RF Rx Instructions: fill on or after 11/24/20 esomeprazole magnesium [Nexium] 20 mg Capsule,Delayed Release(Dr/Ec) 20 mg PO DAILY Discharge Orders: Discharge ED (Routine); Ordered 01/19/24 Ordered By: Zbigniew Mccullough Referrals: Donna Venegas MD [Primary Care Provider] - 4-7 days Patient Instructions: Shingles (ED), Opioid Safety, Pain Management Activity Restrictions/Additional Instructions: Medication as directed. Call your eye doctor in the morning and let them know you were seen here with shingles of the eye. They will want to see you and further examine your eye. Return for worsening vision loss, worsening pain or spreading rash despite treatment, fever, any other concerning symptoms. Coding Level of Care Code ED Knitting Supervisor for Jojo Hernandez
== END 2024-01-19 02:58 | disposition home or self-care (01) ==
PROVIDERS: Emergency Provider Emergency Medicine; PCP Internal Medicine
DX: B02.30 Zoster ocular disease, unspecified (principal); Z79.85 Long-term (current) use of injectable non-insulin antidiabetic drugs; Z79.82 Long term (current) use of aspirin; Z79.4 Long term (current) use of insulin; Z87.891 Personal history of nicotine dependence; E11.9 Type 2 diabetes mellitus without complications; E78.5 Hyperlipidemia, unspecified; I10 Essential (primary) hypertension
CPT/HCPCS: 96372; 99284; J1100

== ENCOUNTER → 2024-09-28 07:48 | Outpatient (BNVA) | payer MEDICARE, SELFPAY | PROVIDERS: PCP Internal Medicine; Visit Provider Podiatrist Foot & Ankle Surgery | DX: L60.8 Other nail disorders (principal); L60.3 Nail dystrophy; E11.69 Type 2 diabetes mellitus with other specified complication; Z79.4 Long term (current) use of insulin | CPT/HCPCS: 99203 ==

== ENCOUNTER → 2024-10-26 08:18 | Outpatient (BNVA) | payer MEDICARE, SELFPAY | PROVIDERS: PCP Internal Medicine; Visit Provider Podiatrist Foot & Ankle Surgery | DX: L60.8 Other nail disorders (principal); L60.3 Nail dystrophy | CPT/HCPCS: 99213 ==